=== PATIENT | female | born 1980 | race Caucasian/White ===

== ENCOUNTER 2018-06-01 15:10 | Emergency (ER) | payer OTHER ==
[~2018-06-01] VITALS: Ht 165.1 cm; Wt 66.8 kg
[~2018-06-01 15:10] MED LIST: ADVAIR IH; BIAXIN 500MG T500 MG PO; BUSPAR10 MG; CARDI-OMEGA1000 MG PO; CELEXA10 MG PO; CEPHALEXIN500 M1 PO; CLONAZEPAM0.125 MG PO; DESYREL 50MG50 MG PO; EFFEXOR-XR150 MG PO; EFFEXOR75 MG PO; HCTZ12.5TAB PO; OMNICEF 300MG300 MG PO; PREDNISONE20 MG PO; PRIL40 PO; PRILOSEC10 MG; PROBIOTIC FORMU1 CAP PO; PROMETHAZINE12.5 M5 PO; PROVENTIL0.09 MG/A1 IH; TESSALON PERLE200 MG PO; XOPENEX1.25 MG/0. IH; ZITHROMAX Z PA250 MG PO; [UNRECOGNIZED DRUG - OTHER] PO
[2018-06-01 15:13] VITALS: BP 134/81; TEMP 99
[2018-06-01] MEDS ORDERED: PRILOSEC 20MG20 MG PO (15:24)
[2018-06-01] MEDS ORDERED: EXCEDRIN1 TAB PO (15:40)
[2018-06-01 16:29] VITALS: PULSE 69
== END 2018-06-01 16:29 | disposition home or self-care (01) ==
LOC: COL.ER 15:10
DX: S86.812A Strain of other muscle(s) and tendon(s) at lower leg level, left leg, initial encounter (principal); K21.9 Gastro-esophageal reflux disease without esophagitis; F41.9 Anxiety disorder, unspecified; F32.9 Major depressive disorder, single episode, unspecified; K58.9 Irritable bowel syndrome, unspecified; Z90.710 Acquired absence of both cervix and uterus

== ENCOUNTER → 2023-01-24 | Outpatient (CLI) | payer BC, OTHER ==
[~2023-01-24] MED LIST changes: +EXCEDRIN1 TAB PO; +PRILOSEC 20MG20 MG PO
== END ==
LOC: COL.RAD 01-23 07:30
DX: G43.909 Migraine, unspecified, not intractable, without status migrainosus (principal); R47.81 Slurred speech